=== PATIENT | male | born 1970 | race Caucasian/White ===

== ENCOUNTER 2018-07-23 01:25 | Emergency (ER) | payer SELFPAY ==
[~2018-07-23] VITALS: Ht 175.3 cm; Wt 71.0 kg
[2018-07-23 07:11] LABS: CHLORIDE 104 mEq/L (98-107)
[2018-07-23] MEDS: ONDANSETRON HCL 4MG/2ML INJ IV STA (07:12)
[2018-07-23] MEDS: LORAZEPAM 2MG/ML CPJ IV ONE (07:12)
[2018-07-23] MEDS: SODIUM CHLORIDE 0.9% 1,000 ML IV ONE (07:12)
[2018-07-23] MEDS: KETOROLAC 30MG/ML VIAL IV ONE (07:13)
[2018-07-23] MEDS: ACETAMINOPHEN 325MG TABLET PO ONE (07:13)
[2018-07-23 07:16] LABS: BASOPHILS % 0.5 % (0.0-2.0); EOSINOPHILS % 1.5 % (0.0-5.0); ETHANOL BLOOD < 10 mg/dL; HEMATOCRIT. 41.2 % (42.0-52.0); HEMOGLOBIN. 14.4 g/dL (14.0-18.0); LYMPHOCYTES % 18.7 % (20.0-50.0); MEAN CORPUSCULAR HEMOGLOBIN 33.1 pg (28.0-32.0); MEAN CORPUSCULAR VOLUME 94.7 fL (80.0-94.0); MEAN PLATELET VOLUME 7.4 fl (7.4-10.4); MONOCYTES % 9.7 % (2.0-8.0); NEUTROPHILS % 69.6 % (40.0-76.0); PLATELET 127 x1000/uL (130-400); RED BLOOD CELL COUNT 4.36 mill/uL (4.7-6.1); RED CELL DISTRIBUTION WIDTH 13.7 % (11.6-14.6)
[2018-07-23 09:07] VITALS: BP 138/85
== END 2018-07-23 09:11 | disposition home or self-care (01) ==
LOC: ER 01:25
DX: M54.6 Pain in thoracic spine (principal); F10.239 Alcohol dependence with withdrawal, unspecified; Z98.890 Other specified postprocedural states; Y90.0 Blood alcohol level of less than 20 mg/100 ml
CPT/HCPCS: 36415; 80053; 80320; 83690; 85025; 96361; 96374; 96375; 99283; J1885; J2060; J2405; J7030; G0480